=== PATIENT | female | born 1965 | race Caucasian/White ===

== ENCOUNTER 2017-06-14 09:21 | Outpatient (CLI) | payer OTHER | END 2017-06-14 19:26 | disposition home or self-care (01) | LOC: SMA 09:21 | PROVIDERS: ATTEND Family Medicine | DX: N63.20 Unspecified lump in the left breast, unspecified quadrant (principal); N63.10 Unspecified lump in the right breast, unspecified quadrant; R92.2 Inconclusive mammogram | CPT/HCPCS: 76641; 77066 ==

== ENCOUNTER 2018-02-22 08:58 | Outpatient (CLI) | payer OTHER | END 2018-02-22 18:55 | disposition home or self-care (01) | LOC: SUS 08:58 | PROVIDERS: ATTEND Family Medicine | DX: N64.52 Nipple discharge (principal); N60.11 Diffuse cystic mastopathy of right breast | CPT/HCPCS: 76641 ==

== ENCOUNTER 2018-08-07 08:28 | Outpatient (CLI) | payer OTHER | END 2018-08-07 10:28 | disposition home or self-care (01) | LOC: SMA 08:28 | PROVIDERS: ATTEND Family Medicine | DX: N60.01 Solitary cyst of right breast (principal); N60.02 Solitary cyst of left breast | CPT/HCPCS: 76641; 77066 ==

== ENCOUNTER 2020-04-02 08:20 | Outpatient (CLI) | payer OTHER | END 2020-04-02 21:17 | disposition home or self-care (01) | LOC: SMA 08:20 | DX: N60.01 Solitary cyst of right breast (principal); N60.02 Solitary cyst of left breast; R92.1 Mammographic calcification found on diagnostic imaging of breast | CPT/HCPCS: 76641; 77066 ==